=== PATIENT | male | born 1960 | race Caucasian/White ===

== ENCOUNTER 2020-08-30 06:30 | Inpatient (IN) ==
[2020-08-24 12:05] LABS: Basophils % 0.3 % (0.0-0.8); Eosinophils % 0.2 % (0.00-10.9); Hematocrit 47.9 VOL% (42.0-52.0); Hemoglobin 16.6 GM/DL (14.0-18.0); Immature Granulocytes % 0.8 %; Immature Granulocytes Absolute 0.09 #; Lymphocytes # 2.3 10*3/uL (1.4-4.0); Lymphocytes % 20.4 % (21.2-54.2); Mean Corpuscular HGB Conc 34.7 GM/DL (32-36); Mean Corpuscular Volume 93.6 FL (87-102); Mean Platelet Volume 8.9 FL (9.6-12.0); Monocytes % 6.5 % (1.7-12.7); Neutrophils % 71.8 % (38.7-73.9); Platelet Count 251 T/CUMM (130-400); Red Blood Count 5.12 MC/CUMM (3.8-5.5); Red Cell Distribution Width 13.8 % (9.3-17.3); White Blood Count 11.2 T/CUMM (4-12)
[2020-08-24 12:15] LABS: INR 0.9; PT Patient Result 9.7 SECS (9.8-11.9); Partial Thromboplastin Time 24.2 SECS (23.9-33.8)
[2020-08-24 12:45] LABS: Bilirubin,Total 0.8 MG/DL (0.2-1.0); Calcium 9.2 MG/DL (8.5-10.1); Osmolality,Calculated 276.7 MOS/KG (273-304); Total Protein 7.6 G/DL (6.4-8.3)
[2020-08-30] MEDS ORDERED: ceFAZolin 1,000 MG VIAL ONE (06:37)
[2020-08-30] MEDS ORDERED: LACTATED RINGERS 1,000 ML IV SCH (07:00)
[2020-08-30] MEDS ORDERED: HEPARIN 5,000 UNIT/1 ML VIAL ONE (07:17)
[2020-08-30] MEDS ORDERED: ceFAZolin 1,000 MG in SYRINGE 1 EACH IV STA (07:29)
[2020-08-30] MEDS ORDERED: DEXAMETHASONE 4 MG/1 ML VIAL ONE ×2 (08:08→10:34)
[2020-08-30] MEDS ORDERED: ROPIVACAINE 0.5% 30 ML VIAL ONE (08:08)
[2020-08-30] MEDS ORDERED: LIDOCAINE 1% 20 ML VIAL ONE (09:02)
[2020-08-30] MEDS ORDERED: oxyCODONE/ACETAMINOPHEN 5-325 MG TABLET PO PRN ×2 (10:09)
[2020-08-30] MEDS ORDERED: DEXTROSE 50% 25 GM/50 ML VIAL IV PRN (10:09)
[2020-08-30] MEDS ORDERED: PROMETHAZINE 25 MG/1 ML VIAL IM PRN (10:09)
[2020-08-30] MEDS ORDERED: HYDROmorphone 2 MG/1 ML VIAL IV PRN ×2 (10:09)
[2020-08-30] MEDS ORDERED: NALOXONE 0.4 MG/ML VIAL IV PRN (10:09)
[2020-08-30] MEDS ORDERED: GLUCAGON 1 MG VIAL IM PRN (10:09)
[2020-08-30] MEDS ORDERED: ONDANSETRON 4 MG/2 ML VIAL IV PRN ×2 (10:09→10:38)
[2020-08-30] MEDS ORDERED: ALBUTEROL 1.25 MG/3 ML NEB RESP TX PRN (10:11)
[2020-08-30] MEDS ORDERED: NITROPRUSSIDE 100 MG in DEXTROSE 5% 250 ML IV SCH (10:30)
[2020-08-30] MEDS ORDERED: PHENYLEPHRINE DRIP 20 MG/250 ML PREMIX IV ONE (10:33)
[2020-08-30] MEDS ORDERED: HEPARIN 10,000 UNIT/10 ML VIAL ONE (10:33)
[2020-08-30] MEDS ORDERED: LIDOCAINE 2% 5 ML VIAL ONE (10:33)
[2020-08-30] MEDS ORDERED: propofoL 200 MG/20 ML VIAL IV ONE (10:33)
[2020-08-30] MEDS ORDERED: MIDAZOLAM 2 MG/2 ML VIAL ONE (10:34)
[2020-08-30] MEDS ORDERED: ePHEDrine 50 MG/ML VIAL ONE (10:34)
[2020-08-30] MEDS ORDERED: fentaNYL 100 MCG/2 ML VIAL ONE (10:34)
[2020-08-30] MEDS ORDERED: SEVOFLURANE 1 UNIT/15 MINUTE INH ONE (10:34)
[2020-08-30] MEDS ORDERED: PROTAMINE SULFATE 50 MG/5 ML VIAL IV ONE (10:35)
[2020-08-30] MEDS ORDERED: ROCURONIUM 100 MG/10 ML VIAL IV ONE (10:35)
[2020-08-30] MEDS ORDERED: ONDANSETRON 4 MG/2 ML VIAL ONE (10:36)
[2020-08-30] MEDS ORDERED: MEPERIDINE 25 MG/1 ML VIAL ONE (10:36)
[2020-08-30] MEDS ORDERED: PROMETHAZINE INJ 25 MG in SODIUM CHLORIDE 0.9% 50 ML IV PRN (10:38)
[2020-08-30] MEDS ORDERED: MEPERIDINE 25 MG/1 ML VIAL IV PRN (10:38)
[2020-08-30] MEDS: LACTATED RINGERS 1,000 ML IV SCH ×2 (11:15→19:44)
[2020-08-30] MEDS ORDERED: INFLUENZA VIRUS VACCINE 0.5 ML SYRINGE IM ONE (11:33)
[2020-08-30] MEDS ORDERED: PNEUMOCOCCAL VACCINE (23 VALENT) 0.5 ML VIAL IM ONE (11:36)
[2020-08-30 11:44] VITALS: BP 105/52
[2020-08-30] MEDS: PHENYLEPHRINE DRIP 40 MG/250 ML PREMIX IV SCH (12:23)
[2020-08-30] MEDS ORDERED: NICOTINE 21 MG/24 HR PATCH TRANSDERM PRN (14:55)
[2020-08-30] MEDS ORDERED: ALUMINUM/MAGNES/SIMETH MAX STR 30 ML UDCUP PO PRN (19:14)
[2020-08-30] MEDS ORDERED: PANTOPRAZOLE 40 MG TABLET PO ONE (19:19)
[2020-08-30] MEDS: CLARITHROMYCIN 500 MG TABLET PO SCH (20:22)
[2020-08-31] MEDS: PHENYLEPHRINE DRIP 40 MG/250 ML PREMIX IV SCH ×2 (00:45→11:11)
[2020-08-31] MEDS: LACTATED RINGERS 1,000 ML IV SCH (06:51)
[2020-08-31] MEDS ORDERED: CLOPIDOGREL 75 MG TABLET PO SCH (09:00)
[2020-08-31] MEDS ORDERED: NON-FORMULARY MEDICATION (Fluticasone-Umeclidin-Vilanter [Trelegy Ellipta] 100-62.5-25 mcg INH SCH (09:00)
[2020-08-31] MEDS ORDERED: MELOXICAM 7.5 MG TABLET PO SCH (09:00)
[2020-08-31] MEDS ORDERED: PANTOPRAZOLE 40 MG TABLET PO SCH (09:00)
[2020-08-31] MEDS ORDERED: ATORVASTATIN 20 MG TABLET PO SCH (09:00)
[2020-08-31] MEDS ORDERED: ASPIRIN EC 81 MG TABLET PO SCH ×2 (09:00)
[2020-08-31] MEDS ORDERED: FLUCONAZOLE 100 MG TABLET PO SCH (09:00)
[2020-08-31] MEDS: CLARITHROMYCIN 500 MG TABLET PO SCH (09:34)
== END 2020-08-31 13:30 | disposition home or self-care (01) | DRG 38 ==
LOC: N.OR 06:30 → N.SDSINP 06:32 → EDSTATUS 08:30 → N.ICU 10:09
PROVIDERS: ADMIT Surgery; ATTEND Surgery